=== PATIENT | male | born 1985 | race Caucasian/White ===

== ENCOUNTER 2018-04-16 11:44 | Day surgery (SDC) | payer BC ==
[~2018-04-16] VITALS: Ht 182.9 cm; Wt 100.5 kg
[~2018-04-16 11:44] MED LIST: PEPCID AC 10MG10 MG PO
[2018-04-16 12:20] VITALS: BP 148/93; PULSE 79; TEMP 98.1
[2018-04-16] MEDS ORDERED: MULTI VITAMINS1 TAB PO (12:28)
[2018-04-16] MEDS ORDERED: MOTRIN 600600 MG/TAB PO (16:04)
[2018-04-16] MEDS ORDERED: COLACE 100100 MG/CAP PO (16:04)
[2018-04-16] MEDS ORDERED: PERCOCET 325 MG1 TA2 PO (16:04)
[2018-04-16 16:40] VITALS: BP 135/98; PULSE 91; TEMP 98.1
[2018-04-16 16:55] VITALS: BP 134/90; PULSE 85
[2018-04-16 17:10] VITALS: BP 128/93; PULSE 78
[2018-04-16 17:25] VITALS: BP 129/94; PULSE 82
[2018-04-16 17:40] VITALS: BP 133/90; PULSE 85
== END 2018-04-16 18:19 | disposition home or self-care (01) ==
LOC: SDCO 11:44
DX: K81.1 Chronic cholecystitis (principal); Z98.52 Vasectomy status
CPT/HCPCS: J1170; J1885; J2405; J2704; Q9967